=== PATIENT | female | born 1940 | race Caucasian/White ===

== ENCOUNTER 2023-10-08 14:25 | Emergency (ER) | payer SELFPAY ==
[2023-10-08] VITALS (19 sets, daily range): BP systolic 174–210; BP diastolic 100–111; PULSE 60–90; RESP 14–23; TEMP 37; O2SAT 90–98; BMI 39.1
--- NOTE | 2023-10-08 14:52 | CT_ITS ---
[address] [address] Patient Name: YESI LUCAS MRN: [id number] date: 1940 Sex: F Assigned Patient Location: ER Current Patient Location: ER Accession/Order Number: [id number] Exam Date: 10/08/2023 15:40 Report Date: 10/08/2023 16:51 At the request of: CARLA HAYWOOD Procedure: CT head/brain wo con EXAMINATION: CT head/brain wo con, 10/08/2023 3:40 PM EST HISTORY: confusion COMPARISON: None. TECHNIQUE: CT scan of the head was performed without IV contrast. CT dose reduction technique was used, including Automated Exposure Control. FINDINGS: BRAIN PARENCHYMA/CSF SPACES: Moderately enlarged ventricles and sulci consistent with atrophy. There is no hemorrhage, mass effect or midline shift. Atherosclerotic calcification of the vertebral and carotid arteries bilaterally. Likely physiologic bilateral basal ganglia calcification. Probable small chronic lacunar infarct in the right cerebellum. Mild low-attenuation in the white matter compatible with chronic small vessel ischemia. PARANASAL SINUSES: Clear. SKULL BASE AND CALVARIUM: Normal. EXTRACRANIAL SOFT TISSUES: Normal. CT/CT head/brain wo con IMPRESSION: 1. No acute intracranial abnormality. 2. Chronic findings as described above. Electronically authenticated by: RHONDA BLACK Date: 10/08/2023 16:51
--- NOTE | 2023-10-08 14:52 | ECG_ITS ---
[facility] Test Date: 2023-10-08 Pat Name: YESI LUCAS Department: Room: - Gender: Female [employer] Att[employer]: : 1940 Requested By: [id number] Order Number: [id number] Reading MD: MARVIN KLEIN Measurements Intervals [place] Rate: 70 P: 44 TN: 210 QRS: 19 QRSD: 82 T: 112 QT: 388 QTc: 409 Interpretive Statements 1100 Sinus rhythm 1470 with occasional supraventricular premature complexes 2231 First degree AV block 5234 Left ventricular hypertrophy with repolarization abnormality 9150 abnormal ECG No previous ECG available for comparison Electronically Signed On 10-10-2023 5:30:44 EST by MARVIN KLEIN
[2023-10-08 15:16] LABS: Basophils Percent Auto 0.6 % (0.2-2.0); Eosinophils Absolute Auto 0.1 10^3/uL (0.0-0.7); Eosinophils Percent Auto 0.9 % (0.9-7.0); Hematocrit 43.1 % (36.0-48.0); Hemoglobin 14.2 g/dL (12.0-16.0); Immature Granulocytes Abs Auto 0.01 10^3/uL (0.00-0.03); Immature Granulocytes Pct Auto 0.1 % (0.0-0.5); Lymphocytes Absolute Auto 2.3 10^3/uL (1.2-3.8); Lymphocytes Percent Auto 33.4 % (20.5-60.0); Mean Corpuscular HGB Conc 32.9 g/dL (29.9-35.2); Mean Corpuscular Hemoglobin 31.4 pg (26.7-34.0); Mean Corpuscular Volume 95.4 fL (81.0-99.0); Mean Platelet Volume 10.6 fL (9.5-13.5); Monocytes Absolute Auto 0.7 10^3/uL (0.3-0.8); Monocytes Percent Auto 9.4 % (1.7-12.0); Neutrophils Absolute Auto 3.9 10^3/uL (1.4-6.5); Neutrophils Percent Auto 55.6 % (43.0-75.0); Platelet Count 210 10^3/uL (150-450); Red Blood Count 4.52 10^6/uL (4.20-5.40); Red Cell Distribution Width 13.1 % (11.0-15.0); White Blood Count 6.9 10^3/uL (4.0-11.0)
[2023-10-08 15:33] LABS: Alanine Aminotransferase 16 U/L (14-59); Albumin Globulin Ratio 1.1; Albumin Level 3.8 g/dL (3.4-5.0); Alkaline Phosphatase 52 U/L (46-116); Anion Gap 14.5; Aspartate Amino Transferase 30 U/L (15-37); BUN Creatinine Ratio 10.1; Calcium 9.7 mg/dL (8.5-10.1); Carbon Dioxide 27.2 mmol/L (21.0-32.0); Chloride 107 mmol/L (98-107); Estimated GFR (African America >60 (>=60); Estimated GFR (Non-African Ame >60 (>=60); Globulin 3.6 g/dL; Glucose 104 mg/dL (74-106); Lactate/Lactic Acid 1.2 mmol/L (0.4-2.0); Potassium 3.7 mmol/L (3.5-5.1); Sodium 145 mmol/L (136-145); Total Protein 7.4 g/dL (6.4-8.2); Troponin I High Sensitivity 24.5 pg/mL (4.0-51.3)
--- NOTE | 2023-10-08 16:14 | ED_ITS ---
HPI - General Adult General Chief complaint: Weakness Stated complaint: UROGENITAL-FEMALE Time Seen by Provider: 10/08/23 14:51 Source: patient Mode of arrival: Wheelchair Limitations: no limitations History of Present Illness HPI narrative: The patient coming to us after she recently was diagnosed with UTI according to her relative at the bedside after being started on antibiotic she has been having some hallucination but also was associate with elevated blood pressure yesterday but after the blood pressure resolved and came normal she was not hallucinating yesterday. Today morning the patient also was noted to have elevated blood pressure and some confusion. Still burning with urination No other complaints Related Data Home Medications Medication Instructions Recorded Confirmed duloxetine 30 mg capsule,delayed 30 mg PO QDAY 10/08/23 10/08/23 release latanoprost 0.005 % eye drops 1 drp ophthalmic (eye) .qhs 10/08/23 10/08/23 Previous Rx's Medication Instructions Recorded lisinopril 30 mg tablet 30 mg PO DAILY #20 tabs 10/08/23 meloxicam 7.5 mg tablet 7.5 mg PO DAILY PRN pain #14 tabs 10/08/23 nitrofurantoin 100 mg PO BID 3 days #6 caps 10/08/23 monohydrate/macrocrystals 100 mg capsule (Macrobid) Allergies Allergy/AdvReac Type Severity Reaction Status Date / Time No Known Drug Allergies Allergy Verified 10/08/23 14:42 Review of Systems ROS Status of ROS 10 or more systems reviewed and unremark able except as noted in history and below PFSH PFSH Social History Smoking status: Never smoker Exam Narrative Exam Narrative: Nurses notes and vital signs reviewed and patient is not hypoxic. General: Well-appearing and in no apparent distress. Skin: Warm, dry, no pallor noted. No rash. Head: Normocephalic, atraumatic. Neck: Supple, non-tender. Eye: Pupils are equal, round and EOMI. No scleral icterus. Ears, Nose, Mouth, and Throat: TM are clear, no nasal mucosal hypertrophy. Oral mucosa is moist, no posterior oropharynx erythema, uvula is mid-line Cardiovascular: Regular Rate and Rhythm without murmur, gallop or rub. Respiratory: No accessory muscle use or respiratory distress. Lungs are clear to auscultation, no wheezing, rales or rhonchi Chest Wall: no tenderness Back: No midline thoracic or lumbar vertebral tenderness. No CVA tenderness Musculoskeletal: normal ROM, no calf or popliteal tenderness, no lower extremity edema/swelling GI: Abdomen is soft, non-distended. Normal bowel sounds. No masses appreciated. No tenderness to palpation. No rebound, guarding, or rigidity noted. Neurological: A&O x4. No cranial nerve dysfunction observed. No truncal ataxia. Moves all extremities. Sensation intact. Psychiatric: Cooperative and interactive. Normal mood and affect. Constitutional Vital Signs, click to edit/add: Last Vital Signs Temp 98.6 F 10/08/23 14:35 Pulse 74 10/08/23 14:35 Resp 20 10/08/23 14:35 BP 210/100 H 10/08/23 14:35 Pulse Ox 97 10/08/23 14:35 Course Vital Signs Vital signs: Vital Signs Temperature 98.6 F 10/08/23 14:35 Pulse Rate 74 10/08/23 14:35 Respiratory Rate 20 10/08/23 14:35 Blood Pressure 210/100 H 10/08/23 14:35 Pulse Oximetry 97 10/08/23 14:35 Temperature 98.6 F 10/08/23 14:35 Pulse Rate 74 10/08/23 14:35 Respiratory Rate 20 10/08/23 14:35 Blood Pressure 210/100 H 10/08/23 14:35 Pulse Oximetry 97 10/08/23 14:35 Medical Decision Making [facility] Narrative Medical decision making narrative: The patient EKG showing sinus rhythm with a heart rate of [address] elevation or depression with some sinus arrhythmia This is right now showed no acute pathology but the patient already take antibiotic and the urine will be sent for culture CBC and chemistry showed no acute pathology as well as the CAT scan showing no acute pathology of the brain but the patient have chronic changes Right now the patient right now does not have any hallucination or confusion but we will adjust her blood pressure medication back to 30 mg of lisinopril instead of the 20 she used to use 40 before almost that more than 10 years ago. The patient will continue to measure her blood pressure daily Mobic for pain control of the right hip The patient also will have Macrobid instead of Keflex The patient is to follow up with primary care physician in next 2-3 days or to return to the emergency department should any of the signs or symptoms worsen or new symptoms develop. The patient agrees with the following Diagnosis and Treatment plan and the patient will be discharged home. Lab Data Labs: Lab Results 10/08/23 10/08/23 Range/Units 15:10 15:50 WBC 6.9 (4.0-11.0) 10^3/uL RBC 4.52 (4.20-5.40) 10^6/uL Hgb 14.2 (12.0-16.0) g/dL Hct 43.1 (36.0-48.0) % MCV 95.4 (81.0-99.0) fL MCH 31.4 (26.7-34.0) pg MCHC 32.9 (29.9-35.2) g/dL RDW 13.1 (11.0-15.0) % Plt Count 210 (150-450) 10^3/uL MPV 10.6 (9.5-13.5) fL Neut % (Auto) 55.6 (43.0-75.0) % Lymph % (Auto) 33.4 (20.5-60.0) % [place] % (Auto) 9.4 (1.7-12.0) % Eos % (Auto) 0.9 (0.9-7.0) % Baso % (Auto) 0.6 (0.2-2.0) % Neut # (Auto) 3.9 (1.4-6.5) 10^3/uL Lymph # (Auto) 2.3 (1.2-3.8) 10^3/uL [place] # (Auto) 0.7 (0.3-0.8) 10^3/uL Eos # (Auto) 0.1 (0.0-0.7) 10^3/uL Baso # (Auto) 0.0 (0.0-0.1) 10^3/uL Abs Immat Gran (auto) 0.01 (0.00-0.03) 10^3/uL Imm/Tot Granulo (auto) 0.1 (0.0-0.5) % Sodium 145 (136-145) mmol/L Potassium 3.7 (3.5-5.1) mmol/L Chloride 107 (98-107) mmol/L Carbon Dioxide 27.2 (21.0-32.0) mmol/L Anion Gap 14.5 BUN 7.0 (7.0-18.0) mg/dL Creatinine 0.69 (0.55-1.02) mg/dL Est GFR ( Amer) >60 (>=60) Est GFR (Non-Af Amer) >60 (>=60) BUN/Creatinine Ratio 10.1 Glucose 104 (74-106) mg/dL Lactate 1.2 (0.4-2.0) mmol/L Calcium 9.7 (8.5-10.1) mg/dL Total Bilirubin 1.0 (0.2-1.0) mg/dL AST 30 (15-37) U/L ALT 16 (14-59) U/L Alkaline Phosphatase 52 (46-116) U/L Troponin I High Sens 24.5 (4.0-51.3) pg/mL Total Protein 7.4 (6.4-8.2) g/dL Albumin 3.8 (3.4-5.0) g/dL Globulin 3.6 g/dL Albumin/Globulin Ratio 1.1 Urine Color Lt. yellow (YELLOW) Urine Clarity Clear (CLEAR) Urine pH 6.5 (5.0-9.0) Ur Specific [place] <=1.005 A (1.005-1.025) Urine Protein Negative (NEG/TRACE) mg/dL Urine Glucose (UA) Negative (NEGATIVE) mg/dL Urine Ketones Negative (NEGATIVE) mg/dL Urine Occult Blood Negative (NEGATIVE) Urine Nitrite Negative (NEGATIVE) Urine Bilirubin Negative (NEGATIVE) Urine Urobilinogen 0.2 (0.2-1.0) EU/dL Ur Leukocyte Esterase Negative (NEGATIVE) Discharge Plan Discharge Chief Complaint: Weakness Clinical Impression: Benign essential HTN, Acute UTI Acute hip pain Qualifiers: Laterality: right Qualified Code(s): M25.551 - Pain in right hip Patient Disposition: Home, Self-Care Time of Disposition Decision: 17:18 Prescriptions / Home Meds: New nitrofurantoin monohyd/m-cryst [Macrobid] 100 mg capsule 100 mg PO BID 3 Days Qty: 6 0RF Rx Instructions: must administer with a meal/food lisinopril 30 mg tablet 30 mg PO DAILY Qty: 20 0RF meloxicam 7.5 mg tablet 7.5 mg PO DAILY PRN (Reason: pain ) Qty: 14 0RF Discontinued cephalexin 500 mg capsule 500 mg PO Q8H Patient Comments: Started on 10/2023 enalapril maleate 20 mg tablet 20 mg PO Q24H No Action duloxetine 30 mg capsule,delayed release(DR/EC) 30 mg PO QDAY latanoprost 0.005 % drops 1 drp OPHTHALMIC (EYE) .qhs Instructions: Urinary Tract Infection in Women (DC), Arthralgia (ED), Hypertension in the Older Adult (ED) Stand Alone Forms: Portal Instructions Referrals: Physician,Non-Staff, MD [Primary Care Provider] - 1 week
[2023-10-08 16:20] LABS: Bilirubin Urine NEGATIVE (NEGATIVE); Blood Urine NEGATIVE (NEGATIVE); Clarity Urine CLEAR (CLEAR); Color Urine LT. YELLOW (YELLOW); Glucose Urine UA NEGATIVE (NEGATIVE); Ketones Urine NEGATIVE (NEGATIVE); Leukocyte Esterase Urine NEGATIVE (NEGATIVE); Nitrite Urine NEGATIVE (NEGATIVE); Protein Urine NEGATIVE (NEG/TRACE); Specific Gravity Urine <=1.005 (1.005-1.025); Urobilinogen Urine 0.2 EU/dL (0.2-1.0); pH Urine 6.5 (5.0-9.0)
[2023-10-08 16:21] LABS: Urine Microscopic Indicated NO
[2023-10-08] MEDS: KETOROLAC TROMETHAMINE 30 MG/ML VIAL 15 MG IVP (16:30)
[2023-10-08] MEDS: LISINOPRIL 10 MG TABLET PO (17:41)
== END 2023-10-08 17:51 | disposition home or self-care (01) ==
PROVIDERS: Emergency Provider Emergency Medicine
DX: I10 Essential (primary) hypertension (principal); N39.0 Urinary tract infection, site not specified; Z79.899 Other long term (current) drug therapy
CPT/HCPCS: 36415; 70450; 80053; 81003; 83605; 84484; 85025; 87086; 93005; 96374; 99285; J1885